=== PATIENT | male | born 1945 | race Caucasian/White ===

== ENCOUNTER → 2018-06-26 | Outpatient (CLI) | payer OTHER | END | disposition home or self-care (01) | LOC: LAB 10:29 | PROVIDERS: ATTEND Urology | DX: R31.29 Other microscopic hematuria (principal); E78.5 Hyperlipidemia, unspecified | CPT/HCPCS: 36415; 82565; 84520 ==

== ENCOUNTER → 2018-07-21 | Outpatient (CLI) | payer OTHER ==
[~2018-07-21] MED LIST: ISOVUE-370 50ML VIAL IV ONE
== END | disposition home or self-care (01) ==
LOC: OIH 08:41
PROVIDERS: ATTEND Urology
DX: K80.20 Calculus of gallbladder without cholecystitis without obstruction (principal); N40.0 Benign prostatic hyperplasia without lower urinary tract symptoms; K42.9 Umbilical hernia without obstruction or gangrene; K76.89 Other specified diseases of liver
CPT/HCPCS: 74178; Q9967

== ENCOUNTER 2018-07-29 15:58 | Emergency (ER) | payer OTHER ==
[2018-07-29] MEDS ORDERED: TETANUS/DIPHTHERIA TOXOID [ADULT] 0.5 ML VIAL IM ONE (16:20)
[2018-07-29] MEDS ORDERED: OCTYL 2-CYANOACRYLATE 1 EACH TP ONE (16:52)
== END 2018-07-29 17:21 | disposition home or self-care (01) ==
LOC: EDH 15:58
DX: S61.411A Laceration without foreign body of right hand, initial encounter (principal); E78.5 Hyperlipidemia, unspecified; Z88.0 Allergy status to penicillin; Z87.891 Personal history of nicotine dependence; X58.XXXA Exposure to other specified factors, initial encounter; Y93.89 Activity, other specified; Y92.89 Other specified places as the place of occurrence of the external cause; Y99.8 Other external cause status
CPT/HCPCS: 12041; 73130; 90471; 90714

== ENCOUNTER → 2024-01-23 | Outpatient (CLI) | payer MEDICARE | END | disposition home or self-care (01) | LOC: RAH 08:21 | PROVIDERS: ATTEND Internal Medicine | DX: K22.9 Disease of esophagus, unspecified (principal); R13.10 Dysphagia, unspecified; K44.9 Diaphragmatic hernia without obstruction or gangrene | CPT/HCPCS: 74220 ==

== ENCOUNTER 2024-06-25 09:02 | Emergency (ER) | payer MEDICARE ==
[~2024-06-25] VITALS: Ht 175.3 cm; Wt 83.0 kg
[2024-06-25] MEDS: [UNRECOGNIZED DRUG - OTHER] IV ONE (09:18)
[2024-06-25 09:22] LABS: BASOPHILS # (AUTO) 0.04 K/uL (0.00-0.20); BASOPHILS % (AUTO) 0.5 % (0.0-5.0); EOSINOPHILS % (AUTO) 1.2 % (0.0-8.0); HEMATOCRIT 48.2 % (42-54); IMMATURE GRANULOCYTE ABSOLUTE 0.07 K/uL (0-1); LYMPHOCYTES # (AUTO) 1.2 K/uL (1.0-4.8); LYMPHOCYTES % (AUTO) 14.4 % (21.0-51.0); MEAN CORPUSCULAR HEMOGLOBIN 27.6 pg (27.0-33.0); MEAN CORPUSCULAR HGB CONC 32.6 g/dL (32.0-36.0); MEAN CORPUSCULAR VOLUME 84.9 fL (79-99); MONOCYTES # (AUTO) 0.9 K/uL (0.1-1.0); MONOCYTES % (AUTO) 11.4 % (3.0-13.0); NEUTROPHILS # (AUTO) 5.9 K/uL (1.8-7.7); NEUTROPHILS % (AUTO) 71.6 % (40.0-77.0); PLATELET COUNT (AUTO) 204 K/uL (130-400); RED BLOOD CELL COUNT(AUTO) 5.68 MIL/uL (4.50-6.20); RED CELL DISTRIBUTION WIDTH 13.2 % (11.0-15.5); WHITE BLOOD COUNT (AUTO) 8.2 K/uL (4.8-10.8)
[2024-06-25 09:30] LABS: CREATININE 1.2 mg/dL (0.5-1.3); POTASSIUM 3.6 mmol/L (3.5-5.1)
[2024-06-25 09:36] LABS: RAPID GROUP A STREP negative (NEGATIVE)
[2024-06-25 09:45] LABS: COVID19 (SARS ANTIGEN RAPID) PRESUMPTIVE NEGATIVE (NEGATIVE); INFLUENZA TYPE A Negative For Type A (NEGATIVE); INFLUENZA TYPE B Negative For Type B (NEGATIVE)
[2024-06-25] MEDS: Solu-medROL 40MG VIAL IVP ONE (09:53)
[2024-06-25 10:42] LABS: APPEARANCE,URINE CLEAR (CLEAR); BILIRUBIN,URINE NEGATIVE (NEGATIVE); COLOR,URINE YELLOW (YELLOW); GLUCOSE, URINE (UA) NEGATIVE (NEGATIVE); KETONES,URINE 20 mg/dL (NEGATIVE); LEUKOCYTE ESTERASE ,URINE NEGATIVE Leu/uL (NEGATIVE); NITRATE,URINE NEGATIVE (NEGATIVE); OCCULT BLOOD,URINE SMALL (NEGATIVE); PH,URINE 5.5 (5.0-8.0); PROTEIN,URINE 10 mg/dL (NEGATIVE); UROBILINOGEN,URINE 0.2 mg/dL (0.2-1.0)
[2024-06-25] MEDS: levoFLOXacin 750 MG/D5W 150ML BAG IV ONE (10:43)
[2024-06-25] MEDS: IpraTROPium/alBUTERol SULFATE 3 ML SOLUTION IH ONE (11:01)
[2024-06-25 11:05] VITALS: PULSE 95; RESP 18
[2024-06-25 11:06] LABS: ADD UA MICROSCOPIC YES
[2024-06-25 11:19] LABS: MUCUS,URINE FEW LPF (None Seen); SQUAMOUS EPITHELIAL CELL,UR RARE /HPF (0-2)
[2024-06-25] MEDS ORDERED: LEVO750T39 PO (11:37)
[2024-06-25] MEDS ORDERED: ALBUHFA IH (11:37)
[2024-06-25] MEDS ORDERED: PRED20TA3 PO (11:37)
[2024-06-25] MEDS ORDERED: GUAI120L62 PO (11:37)
[2024-06-25] MEDS: AZITHROMYCIN 500MG+NS 250ML 250 ML IVPB ONE (12:09)
[2024-06-25 13:11] VITALS: BP 128/72; PULSE 96; RESP 18; TEMP 98.7; O2SAT 94
== END 2024-06-25 13:34 | disposition home or self-care (01) ==
LOC: EDH 09:02
DX: J20.9 Acute bronchitis, unspecified (principal); E86.0 Dehydration; E78.00 Pure hypercholesterolemia, unspecified; Z20.822 Contact with and (suspected) exposure to COVID-19; Z79.899 Other long term (current) drug therapy; Z88.0 Allergy status to penicillin; Z98.890 Other specified postprocedural states
CPT/HCPCS: 99285; 96365; 96366; 71045; 96361; 96375; 87426; 82550; 84484; 80048; 85025; 87040; 87880; 87205; 87804 ×2; 83605; 81001; 36415; 96368; 93005; 94640; 87071; J1956; J7030; J2919; J0456

== ENCOUNTER → 2024-06-25 | Outpatient (CLI) | payer MEDICARE ==
[~2024-06-25] MED LIST changes: +ALBUHFA IH; +GUAI120L62 PO; -ISOVUE-370 50ML VIAL IV ONE; +LEVO750T39 PO; +PRED20TA3 PO
[2024-06-25 09:01] LABS: INR 1.01 (0.85-1.15); PROTHROMBIN TIME 10.9 SEC (9.6-11.6)
== END | disposition home or self-care (01) ==
LOC: RAH 07:42
PROVIDERS: ATTEND Otolaryngology Plastic Surgery within the Head & Neck
DX: E04.1 Nontoxic single thyroid nodule (principal); K44.9 Diaphragmatic hernia without obstruction or gangrene; J20.9 Acute bronchitis, unspecified; R31.29 Other microscopic hematuria; Z20.822 Contact with and (suspected) exposure to COVID-19; Z98.890 Other specified postprocedural states; Z79.899 Other long term (current) drug therapy
CPT/HCPCS: 36415; 85610; 85730

== ENCOUNTER → 2025-03-15 | Outpatient (CLI) | payer MEDICARE ==
[~2025-03-15] MED LIST changes: -LEVO750T39 PO; +LEVO750T90 PO
--- NOTE | 2025-03-15 11:49 | HMCIMG ---
CHEST 2VWS HISTORY: Cough COMPARISON: 06/25/2024 FINDINGS: Frontal and lateral projections of the chest were obtained. There is no acute pulmonary infiltrates or failure. The heart is not enlarged. No evidence of aortic calcification is seen. Degenerative changes are seen of the thoracolumbar spine. IMPRESSION: 1. No acute pulmonary infiltrates.
--- NOTE | 2025-03-15 11:49 | HMCIMG ---
CERV SPINE 2-3VWS HISTORY: Neck COMPARISON: None FINDINGS: 4 images of cervical spine were obtained. Bony osteopenia is seen. Block vertebrae is seen C5 and C6. Disc space narrowings are seen at C4-5 and C6-7 levels. There is straightening of normal lordotic curvature which may be related to muscle spasm or positioning. No loss of vertebral height is seen. No fracture or dislocation is seen. Degenerative changes are seen. IMPRESSION: 1. No fracture is seen. There are degenerative changes with cervical spine spondylosis
== END | disposition home or self-care (01) ==
LOC: LAB 10:59
PROVIDERS: ATTEND Nurse Practitioner Adult Health
DX: M47.812 Spondylosis without myelopathy or radiculopathy, cervical region (principal); M48.02 Spinal stenosis, cervical region; M47.815 Spondylosis without myelopathy or radiculopathy, thoracolumbar region; M85.88 Other specified disorders of bone density and structure, other site; R07.9 Chest pain, unspecified; R05.9 Cough, unspecified; M54.2 Cervicalgia
CPT/HCPCS: 71046; 72040

== ENCOUNTER → 2025-04-30 | Outpatient (CLI) | payer MEDICARE ==
--- NOTE | 2025-05-01 06:38 | HMCIMG ---
EXAMINATION: ULTRASOUND OF THE SCROTUM WITH COLOR DOPPLER. TECHNIQUE: Grayscale and color doppler images were submitted. In addition, color Doppler is medically necessary to perform in order to evaluate vascularity and blood flow. CLINICAL HISTORY: Pain. COMPARISON: None. FINDINGS: The testicles are normal in size, contour, and echotexture. The right testicle measures 3.3 x 2.0 x 1.9 cm. The left testicle measures 3.2 x 2.3 x 2.0 cm. There is patent blood flow within the testicles bilaterally. No intra-testicular mass or abnormal echotexture. Bilateral epididymides are normal in appearance. The right epididymis measures 0.7 cm. There is a simple cyst that measures 0.3 cm in the head. The left epididymis measures 0.6 cm. There is no varicocele and shows no significant reflux on Valsalva. No hydrocele. Scrotal carmichael appear normal. There is left inguinal hernia, the hernial sac measures 2.9 x 2.4 x 2.0 cm with omentum as content. IMPRESSION: Normal bilateral testicles with normal Doppler flow. Small simple cyst in the head of the right epididymis. Left inguinal hernia. /[place]
== END | disposition home or self-care (01) ==
LOC: RAH 14:09
PROVIDERS: ATTEND Urology
DX: N50.3 Cyst of epididymis (principal); K40.90 Unilateral inguinal hernia, without obstruction or gangrene, not specified as recurrent; N50.9 Disorder of male genital organs, unspecified
CPT/HCPCS: 76870

== ENCOUNTER → 2025-09-09 | Outpatient (CLI) | payer MEDICARE ==
--- NOTE | 2025-09-09 18:34 | HMCIMG ---
STUDY: X-RAY OF THE RIGHT HIP, 3 VIEWS HISTORY: Pain in the right hip. TECHNIQUE: AP view of the pelvis and AP and frogleg lateral views of the right hip are submitted for interpretation. COMPARISON: CT scan of the abdomen and pelvis with and without contrast from 07/21/2018. FINDINGS: Bones and joints: Bilateral pubic bones, iliac wings, and ischia appear normal. Bilateral acetabula, including anterior and posterior columns, are intact. Bilateral femoral heads and necks are normal in contour without fracture or subluxation. No hip joint effusion is identified. Pelvis and hip joints: Bilateral hip joint spaces show definite joint space narrowing with marginal osteophytes and subchondral sclerosis, more pronounced in the right acetabular region, compatible with osteoarthritic change. No femoral head collapse or discrete erosive lesion is seen. Sacrum and coccyx: Sacrum and coccyx are normal in alignment and mineralization without fracture or destructive lesion. Posterior elements appear intact. Sacroiliac joints: Bilateral sacroiliac joints are preserved in width without erosions, sclerosis, or ankylosis. Soft tissues: Visualized periarticular soft tissues and muscles around the hip joints are unremarkable without soft tissue swelling, calcification, or radiopaque foreign body. IMPRESSION: * Bilateral hip osteoarthritis with joint space narrowing, osteophyte formation, and subchondral sclerosis, more advanced on the right, correlating with the patient???s right hip pain. * No acute fracture, dislocation, or radiographic evidence of avascular necrosis of the femoral heads. * Normal appearance of the sacroiliac joints, sacrum, coccyx, and visualized pelvic ring. * Unremarkable periarticular soft tissues without radiographic evidence of effusion or acute soft tissue abnormality. * Compared with the CT scan of the abdomen and pelvis with and without contrast from 07/21/2018, there is no definite interval development of an acute osseous abnormality; the degenerative changes of the hip joints are overall compatible with a chronic osteoarthritic process. /[place]
== END | disposition home or self-care (01) ==
LOC: RAH 09:05
PROVIDERS: ATTEND Nurse Practitioner Adult Health
DX: M16.0 Bilateral primary osteoarthritis of hip (principal); M25.551 Pain in right hip; M25.751 Osteophyte, right hip
CPT/HCPCS: 73502